=== PATIENT | female | born 1960 | race Caucasian/White ===

== ENCOUNTER → 2016-09-22 | Outpatient (CLI) | payer BC ==
--- NOTE | 2016-09-22 17:09 | DX ---
DEXA Bone Mineral Densitometry Clinical Indications: 56-year-old postmenopausal female with suspected estrogen deficiency low bone mineral density versus osteoporosis. Previous breast carcinoma. Comparison: 2013. Technique: Bone Mineral Densitometry (BMD) by Dual Energy X-Ray Absorptiometry (DEXA) was performed utilizing the [employer] scanner. The lumbar spine was evaluated in the AP projection. Bilateral hips and one forearm were evaluated in the AP projection. Vertebral fracture assessment was also per formed. AP Lumbar Spine: The L1, L2, L3 and L4 vertebral bodies are evaluated. BMD: 1.147 gm/cm2 T-score: - 0.4 SD Z-score: 0.6 SD Statistical interval decrease in bone mineral density since most recent study. AP Left Hip: BMD: 0.824 gm/cm2 T-score: - 1.5 SD Z-score: - 0.4 SD Statistical interval decrease in bone mineral density since most recent study. AP Right Hip: BMD: 0.765 gm/cm2 T-score: - 2.0 SD Z-score: - 0.8 SD Statistical interval decrease in bone mineral density since most recent study. AP Left Forearm: BMD: 0.828 gm/cm2 T-score: - 0.5 SD Z-score: 0 SD No significant interval change in bone mineral density since most recent study. Vertebral Fracture Assessment: T11 moderate compression fracture, slightly worse than previous study. Conclusion: 1. Considering the lowest measured site, the patient has low bone mineral density and is at increased risk for fracture. However given the moderate compression fracture T11 vertebral body this may sugge st underlying osteoporosis. 2. The ten year risk for any major osteoporotic fracture is 8 % and for a hip fracture is 1 %. 3. Statistical interval decrease in bone mineral density since most recent study. Recommendations: 1. If not previously performed, consider excluding secondary metabolic causes of bone loss (reported to be present in as many as 30% of patients with normal Z scores). Basic laboratory evaluation might include blood chemistries (calcium, phosphorus, alkaline phosphatase, liver function tests, creatinin e, total protein), complete blood count, serum 25-OH- vitamin D3 level, 24-hour urine calcium, ser um TSH and serum PTH. Targeted laboratory testing based on individual patient circumstances might inc lude serum electrophoresis (SPEP or UPEP), anti-tissue transglutaminase antibody levels (celiac dise ase) , serum bone specific alkaline phosphatase, bone turnover markers (urine, serum) or fibroblast g rowth factor 23 (FGF 23)(evaluate for unexplained osteomalacia). 2. If secondary causes are excluded, then consider initiating treatment with a bisphosphonate (such a s Fosamax, Actonel or Boniva). If the patient is unable to use an oral bisphosphonate, another agent such as IV bisphosphonates (Boniva or Reclast), teriparatide (Forteo), ( anti RANKL monoclonal antibo dy) might be considered. 3. If antiresorptive therapy is initiated and if clinically indicated, consider obtaining a baseline and 3 month followup bone resorption marker (NTX, CTX, TRAP5b or Pyridinoline, deoxypyridinoline) to monitor the therapeutic effect. 4. Check serum hydroxy vitamin D3 level (optimal > 50 ng/ml). 5. Osteoporosis prevention and treatment begins by modifying risk factors. The patient should be enco uraged to participate in a regular exercise program that includes weightbearing and muscle strengthen ing regimens, as is clinically appropriate. 6. Recommend follow-up DEXA in 2 years to assess the efficacy of pharmacologic intervention and/or co rrection of appropriate secondary cause. 7. If there is clinical concern for pathologic fracture T11, consider MRI spine imaging without with contrast enhancement.
== END ==
LOC: FIMAGING 08:36
PROVIDERS: ATTEND Internal Medicine Hematology & Oncology
DX: Z13.820 Encounter for screening for osteoporosis (principal); M85.80 Other specified disorders of bone density and structure, unspecified site; C50.412 Malignant neoplasm of upper-outer quadrant of left female breast

== ENCOUNTER → 2018-08-19 | Outpatient (CLI) | payer BC | LOC: FIMAGING 08:20 | PROVIDERS: ATTEND Internal Medicine Hematology & Oncology | DX: Z13.820 Encounter for screening for osteoporosis (principal); M85.89 Other specified disorders of bone density and structure, multiple sites; Z85.3 Personal history of malignant neoplasm of breast ==